=== PATIENT | female | born 1960 | race Caucasian/White ===

== ENCOUNTER → 2023-10-03 | Outpatient (CLI) | payer OTHER | LOC: COL.RAD 12:27 | DX: K76.0 Fatty (change of) liver, not elsewhere classified (principal); R06.02 Shortness of breath | CPT/HCPCS: Q9967 ==

== ENCOUNTER → 2024-02-27 | Outpatient (CLI) | payer OTHER | LOC: COL.CARD 13:11 | DX: R06.02 Shortness of breath (principal) ==